=== PATIENT | male | born 1955 | race Caucasian/White ===

== ENCOUNTER 2017-01-09 07:10 | Emergency (ER) | payer BC ==
[~2017-01-09] VITALS: Ht 182.9 cm; Wt 143.0 kg
[2017-01-09 07:12] VITALS: BP 180/80; PULSE 80; RESP 20; TEMP 98.2; O2SAT 96
[2017-01-09 08:00] VITALS: BP 138/73; PULSE 72; RESP 20; O2SAT 95
[2017-01-09] MEDS ORDERED: LISI-515 PO (08:04)
[2017-01-09] MEDS ORDERED: AMLO5 PO (08:04)
[2017-01-09] MEDS ORDERED: ZOLO50TA PO (08:04)
[2017-01-09 09:21] LABS: AUTOMATED NEUTROPHIL # 4.1 TH/MM3 (1.8-7.7); BASOPHIL # 0.1 TH/MM3 (0-0.2); BASOPHIL % 0.8 % (0.0-2.0); EOSINOPHIL # 0.2 TH/MM3 (0-0.4); EOSINOPHIL % 3.5 % (0.0-4.0); HEMATOCRIT 38.9 % (39.0-51.0); HEMO FLAGS DIFF FINAL; LYMPH % 22.6 % (9.0-44.0); LYMPHOCYTE # 1.4 TH/MM3 (1.0-4.8); MEAN CELL VOLUME 81.6 FL (80.0-100.0); MEAN CORPUSCULAR HEMOGLOBIN 26.9 PG (27.0-34.0); MEAN CORPUSCULAR HGB CONC 32.9 % (32.0-36.0); MONO % 8.6 % (0.0-8.0); NEUT % 64.5 % (16.0-70.0); PLATELET COUNT 198 TH/MM3 (150-450); RED BLOOD COUNT 4.77 MIL/MM3 (4.50-5.90); RED CELL DISTRIBUTION WIDTH 16.4 % (11.6-17.2); WHITE BLOOD COUNT 6.4 TH/MM3 (4.0-11.0)
[2017-01-09 09:52] LABS: BLOOD, URINE TRACE (NEG); COMMENT (UR) CULT NOT INDICATED; CULTURE IF INDICATED CULT NOT INDICATED; GLUCOSE,URINE NEG (NEG); KETONE, URINE NEG (NEG); MUCUS URINE FEW /lpf (OCC); NITRITE,URINE NEG (NEG); PH, URINE 5.5 (5.0-8.5); URINE COLOR YELLOW (YELLW/STRAW)
[2017-01-09 09:58] LABS: POTASSIUM 4.8 MEQ/L (3.5-5.1)
[2017-01-09 11:44] VITALS: BP 128/73; PULSE 80; RESP 16; O2SAT 99
--- NOTE | 2017-01-09 14:00 | RADRPT ---
EXAM DATE/TIME: 01/09/2017 13:14 [place] COMPARISON: No previous studies available for comparison. INDICATIONS : Bilateral lower quadrant and unable to urinate for two weeks, calculi. ORAL CONTRAST: No oral contrast ingested. RADIATION DOSE: 28.45 CTDIvol (mGy) ; Patient body habitus MEDICAL HISTORY : Hypertension. SURGICAL HISTORY : Appendectomy. Total knee replacement, left.total knee replacement, right. ENCOUNTER: Initial ACUITY: 2 weeks PAIN SCALE: 5/10 LOCATION: Bilateral lower quadrant TECHNIQUE: Volumetric scanning of the abdomen and pelvis was performed. Using automated exposure control and ad justment of the mA and/or kV according to patient size, radiation dose was kept as low as reasonably achievable to obtain optimal diagnostic quality images. DICOM format image data is available electro nically for review and comparison. FINDINGS: There is evidence of a 6 mm calcified calculus in the expected region of the left ureterovesical junc tion without ureteropelvic caliectasis noted on the left. Uncomplicated colonic diverticulosis is no deven. There is no acute diverticulitis. The appendix is normal. The urinary bladder is nondistended . The liver is mildly prominent and demonstrates fatty infiltration. There is mild splenomegaly. E valuation of the solid organs of the abdomen is limited by the lack of intravenous contrast. There i s a tiny calcified gallstone within the fundus of the gallbladder. The abdominal aorta is calcified but is not aneurysmally dilated. The inferior vena cava is normal. There is a small umbilical herni a containing only fat. Degenerative changes and scoliosis of the lumbar spine are noted. Multilevel spinal stenoses are noted within the lumbar spine. Severe circumferential spinal stenosis is noted a t L4-5. The prostate gland is enlarged. Small inguinal hernias are noted and contain only fat (left slightly larger than right). The visualized lung bases are clear. CONCLUSION: 1. A 6 mm calcified calculus at the level of the left ureterovesical junction without associated ure teropelvic caliectasis. 2. Multilevel spinal stenosis within the lumbar spine which is severe at L4-5. 3. Enlarged fatty liver. 4. Mild splenomegaly. 5. Uncomplicated colonic diverticulosis. 6. Enlarged prostate. 7. Degenerative changes and scoliosis of the thoracolumbar spine. Jose Shah MD on January 09, 2017 at 13:32 Board Certified Radiologist. This report was verified electronically.
[2017-01-09] MEDS ORDERED: TAMS5CAP PO (14:17)
--- NOTE | 2017-01-09 14:20 | PD ---
HPI Chief Complaint: Complaint Time Seen by Provider: 08:40 Travel History International Travel<30 days: No Contact w/Intl Traveler<30days: No Traveled to known affect area: No History of Present Illness HPI DIFFICULTY URINATING PER PATIENT, FOR LAST WEEK OR SO, WAS TOLD BY PCP THAT IT WAS A UTI AND GIVEN ABX WHICH PATIENT IS ALMOST FINISHED WITH YET STILL FEELS THE SAME SYMPTOMS. PT DOES STATE THAT INITIALLY THERE WERE SOME IMPROVEMENT IN SYMPTOMS BUT OF YESTERDAY HE FEELS THE SAME PRESSURE AND NEED TO URINATE YET HE HAS TO FORCE IT FOR URINE TO "DRIBBLE" OUT. DENIES FEVER/[place]/CP/ABD PAIN/ HEMATURIA AT THIS POINT. NO ALLEVIATING/AGGRAVATING FACTORS, NO RADIATING PAIN. PFSH Past Medical History Anxiety: Yes Hypertension: Yes Past Surgical History Appendectomy: Yes Joint Replacement: Yes (R and L knee replacement) Tonsillectomy: Yes Social History Alcohol Use: No Tobacco Use: No Substance Use: No Allergies-Medications (Allergen,Severity, Reaction): Coded Allergies: No Known Allergies (Unverified , 01/09/17) Reported Meds & Prescriptions Reported Meds & Active Scripts Active Reported Norvasc (Amlodipine Besylate) 5 Mg Tab 5 Mg PO DAILY Lisinopril 20 Mg Tab 20 Mg PO DAILY Zoloft (Sertraline HCl) 50 Mg Tab 50 Mg PO DAILY Review of Systems Except as stated in HPI: all other systems reviewed are Neg Genitourinary: Positive: Urgency, Decreased Urinary Output, Dribbling Physical Exam Narrative GENERAL: SKIN: Warm and dry. HEAD: Atraumatic. Normocephalic. EYES: Pupils equal and round. No scleral icterus. No injection or drainage. ENT: No nasal bleeding or discharge. Mucous membranes pink and moist. NECK: Trachea midline. No JVD. CARDIOVASCULAR: Regular rate and rhythm. RESPIRATORY: No accessory muscle use. Clear to auscultation. Breath sounds equal bilaterally. GASTROINTESTINAL: Abdomen soft, non-tender, nondistended. Hepatic and splenic margins not palpable. MUSCULOSKELETAL: Extremities without clubbing, cyanosis, or edema. No obvious deformities. NEUROLOGICAL: Awake and alert. No obvious cranial nerve deficits. Motor grossly within normal limits. Five out of 5 muscle strength in the arms and legs. Normal speech. PSYCHIATRIC: Appropriate mood and affect; insight and judgment normal. Data Data Last Documented VS Vital Signs Date Time Temp Pulse Resp B/P Pulse Ox O2 Delivery O2 Flow Rate FiO2 01/09/17 11:44 80 16 128/73 99 Room Air 01/09/17 07:12 98.2 Orders Complete Blood Count With Diff (01/09/17 08:40) Basic Metabolic Panel (Bmp) (01/09/17 08:40) Urinalysis - C+S If Indicated (01/09/17 08:40) Ct Abd/Pel W/O Iv Contrast (01/09/17 08:40) Iv Access Insert/Monitor (01/09/17 08:40) Urinary Catheter Insert/Apply (01/09/17 08:40) Labs Laboratory Tests Test 01/09/17 01/09/17 08:40 09:25 White Blood Count 6.4 TH/MM3 Red Blood Count 4.77 MIL/MM3 Hemoglobin 12.8 GM/DL Hematocrit 38.9 % Mean Corpuscular Volume 81.6 FL Mean Corpuscular Hemoglobin 26.9 PG Mean Corpuscular Hemoglobin 32.9 % Concent Red Cell Distribution Width 16.4 % Platelet Count 198 TH/MM3 Mean Platelet Volume 9.0 FL Neutrophils (%) (Auto) 64.5 % Lymphocytes (%) (Auto) 22.6 % Monocytes (%) (Auto) 8.6 % Eosinophils (%) (Auto) 3.5 % Basophils (%) (Auto) 0.8 % Neutrophils # (Auto) 4.1 TH/MM3 Lymphocytes # (Auto) 1.4 TH/MM3 Monocytes # (Auto) 0.5 TH/MM3 Eosinophils # (Auto) 0.2 TH/MM3 Basophils # (Auto) 0.1 TH/MM3 CBC Comment DIFF FINAL Differential Comment Sodium Level 137 MEQ/L Potassium Level 4.8 MEQ/L Chloride Level 108 MEQ/L Carbon Dioxide Level 22.0 MEQ/L Anion Gap 7 MEQ/L Blood Urea Nitrogen 15 MG/DL Creatinine 0.86 MG/DL Estimat Glomerular Filtration 91 ML/MIN Rate Random Glucose 89 MG/DL Calcium Level 9.0 MG/DL Urine Color YELLOW Urine Turbidity CLEAR Urine pH 5.5 Urine Specific [place] 1.022 Urine Protein NEG mg/dL Urine Glucose (UA) NEG mg/dL Urine Ketones NEG mg/dL Urine Occult Blood TRACE Urine Nitrite NEG Urine Bilirubin NEG Urine Urobilinogen LESS THAN 2.0 MG/DL Urine Leukocyte Esterase NEG Urine RBC 4 /hpf Urine WBC 1 /hpf Urine Mucus FEW /lpf Microscopic Urinalysis Comment CULT NOT INDICATED MDM Medical Decision Making Medical Screen Exam Complete: Yes Emergency Medical Condition: Yes Medical Record Reviewed: Yes Differential Diagnosis KIDNEY STONES V PROSTATE ENLARGEMENT V KIDNEY FAILURE V UTI Narrative Course GOOD GFR/CREATININE LEVELS, NO LEUKOCYTOSIS, NO ELECTROLYTE ABNL, CT SHOWED PROSTATE ENLARGEMENT AND LEFT UVJ STONE WHICH IS NEARLY INSIDE THE BLADDER AT THIS POINT. Diagnosis Primary Impression: WEAKENED URINARY STREAM DUE TO BPH AND URETEROLITHIASIS Scripts Tamsulosin (Flomax)0.4 Mg Cap0.4 Mg PO HS #7 CAP Prov:Armen Frye MD 01/09/17 Disposition: 01 DISCHARGE HOME Condition: Stable Armen Frye MD Jan 09, 2017 14:20
== END 2017-01-09 14:46 | disposition home or self-care (01) ==
LOC: NEPC 07:10
DX: N40.0 Benign prostatic hyperplasia without lower urinary tract symptoms (principal); N20.1 Calculus of ureter; F41.9 Anxiety disorder, unspecified; I10 Essential (primary) hypertension; Z79.899 Other long term (current) drug therapy
CPT/HCPCS: 74176; 80048; 81001; 85025; 99284